=== PATIENT | male | born 1965 | race Asian ===

== ENCOUNTER → 2024-03-01 08:39 | Outpatient (REF) | payer BC, SELFPAY | LOC: RAD 08:39 | PROVIDERS: ATTENDING PHYSICIAN Orthopaedic Surgery; FAMILY PHYSICIAN Internal Medicine | DX: Z96.653 Presence of artificial knee joint, bilateral (principal) | CPT/HCPCS: 78315; A9503 ==

== ENCOUNTER 2024-04-28 07:37 | Inpatient (IN) | payer BC, SELFPAY ==
--- NOTE | 2024-03-30 08:46 | CM ---
Patient is scheduled for a L TK Revision on 04/28/24. Spoke with patient's prior to surgery via telephone. Patient had B TKR at in 2022. Reintroduced role of Orthopedic Navigator. She reports that she, patient and their daughter (who is home
from [facility] for the summer) live in a two story home. There is one step to enter and a flight to his bedroom. He currently functions independently. He has a rolling walker, cane, raised toilet seat and shower seat. He has never had VN services. PCP
is Craig Alvarez.
Discussed orthopedic program and post surgical plans. Reviewed anticipated length of stay and that goal is for patient to return home at discharge. Also reviewed outpatient PT. She is in agreement with tentative plan and will be home with patient to
provide any needed support. Patient will go directly to outpatient PT at [facility].
Patient will complete online education.
Plan: Orthopedic Navigator will remain available to assist with the care of patient and will reassess discharge needs after surgery.
[2024-04-01 13:41] VITALS: BMI 31.4
[2024-04-01 15:17] LABS: Hematocrit 38.3 % (39.0-52.0); Hemoglobin 12.4 g/dL (13.0-18.0); Mean Corp Hgb Conc. 32.4 g/dL (33.0-37.0); Mean Corpuscular Hgb 26.1 pg (27.0-31.0); Mean Corpuscular Volume 80.5 fL (80.0-94.0); Mean Platelet Volume 9.7 fL (7.4-10.4); Platelet Count 250 10^3/uL (130-400); Red Blood Cell Count 4.76 10^6/uL (4.70-6.10); Red Cell Dist. Width 13.5 % (11.5-14.5); White Blood Cell Count 5.4 10^3/uL (4.8-10.8)
[2024-04-01 15:46] LABS: ALT (SGPT) 31 U/L (0-50); AST (SGOT) 27 U/L (17-59); Albumin 4.5 g/dl (3.5-5.0); Alkaline Phosphatase 99 U/L (38-126); Blood Urea Nitrogen 15 mg/dl (9-20); Calcium 9.6 mg/dl (8.4-10.2); Carbon Dioxide 22 mmol/L (22-30); Chloride 105 mmol/L (98-107); Estimated Creatinine Clearance > 125 ml/min; Glucose 155 mg/dl (70-99); Potassium 4.2 mmol/L (3.5-5.1); Sodium 140 mmol/L (135-145); eGFR > 60.00
[2024-04-02 09:18] LABS: Glycohemoglobin (HgbA1c) 6.7 % (4.0-5.6)
[2024-04-28] VITALS (15 sets, daily range): BP systolic 129–178; BP diastolic 75–98; PULSE 67; O2SAT 97; BMI 31.4
[2024-04-28] MEDS: CELEBREX 200 MG PO (08:42)
[2024-04-28] MEDS: TYLENOL 650 MG PO ×4 (08:43→23:52)
[2024-04-28] MEDS: NORMOSOL-R 1000 IV ×2 (08:43→13:36)
[2024-04-28] MEDS: ZOFRAN 4 MG IV (12:51)
[2024-04-28 12:54] LABS: Glucose - Point of Care 147 mg/dl (70-99)
[2024-04-28] MEDS: ROXICODONE 5 MG PO (13:39)
[2024-04-28] MEDS: NOVOLOG FLEXPEN SC ×2 (15:23)
[2024-04-28] MEDS: NOVOLOG FLEXPEN-MODERATE RESISTANCE SC ×2 (15:23→15:24)
[2024-04-28] MEDS: PROTONIX PO (15:23)
--- NOTE | 2024-04-28 15:25 | W.PN.UPDATE ---
Update Note
Progress Note Update
Patient doing well s/p left TK Revision for femoral loosening. VSS. Pulm: nonlabored. CV: regular. LLE: Dressing CDI. NVI distally. Calf soft. Able to fully extend. Postop xrays as expected. Plan for ASA for DVT prophylaxis. Mobilize.
Discharge home tomorrow with outpatient PT on Thursday.
--- NOTE | 2024-04-28 15:25 | PTCARENOTE ---
1430: Patient arrived to 2S. Full head to toe assessment completed. B/L LE neurovascular assessment completed. [place] on L knee with a scant amount of drainage that is intact. IVF running per order. Call beckman within reach and bed in lowest
position. Family at bedside.
[2024-04-28] MEDS: DILAUDID 0.5 MG IV (16:29)
[2024-04-28] MEDS: ROXICODONE 10 MG PO (17:55)
[2024-04-28] MEDS: ASPIRIN 325 MG PO (17:55)
[2024-04-28] MEDS: ANCEF 5 IV (17:55)
[2024-04-28] MEDS: LIPITOR 80 MG PO (17:55)
[2024-04-28 17:59] LABS: Glucose - Point of Care 187 mg/dl (70-99)
[2024-04-28] MEDS: NOVOLOG FLEXPEN-MODERATE RESISTANCE 1 UNITS SC (18:00)
[2024-04-28] MEDS: NOVOLOG FLEXPEN 4 UNITS SC (18:00)
[2024-04-28] MEDS: SENOKOT 17.2 MG PO (19:59)
[2024-04-28] MEDS: BACTROBAN 2% OINTMENT 1 APPLIC NASAL (19:59)
[2024-04-28] MEDS: COLACE 100 MG PO (19:59)
[2024-04-28] MEDS: TORADOL 15 MG IV (20:00)
[2024-04-28 21:04] LABS: Glucose - Point of Care 187 mg/dl (70-99)
[2024-04-28] MEDS: NEURONTIN 300 MG PO (22:10)
[2024-04-29] MEDS: ANCEF 5 IV (01:45)
[2024-04-29 03:00] VITALS: BP 148/73
[2024-04-29] MEDS: TYLENOL PO (05:27)
[2024-04-29 07:05] VITALS: BP 135/70
--- NOTE | 2024-04-29 07:25 | W.PN.ORTHO ---
Today's Communication / Plan
-
Plan for discharge home later this afternoon with outpatient PT on Thursday.
Assessment
.
Distal Motor Intact: Yes
Dressing:
Clean, dry and intact.
Assessment:
Dpoing well s/p Left total knee revision
Plan
.
Surgery / Date: 04/28/24
DVT Prophylaxis: Aspirin
Activity:
Out of bed.
PT/OT
Discharge Plan: Home w/ Outpatient PT
Subjective
.
.:
Patient resting comfortably. OOB yesterday. Doing well.
Vital Signs and Labs
.
Vital Signs and Labs:
Lab Results
04/01/24 13:48
04/01/24 13:48
Temp Pulse Resp BP Pulse Ox
97.8 F 59 12 148/73 98
04/29/24 03:00 04/29/24 03:00 04/29/24 03:00 04/29/24 03:00 04/29/24 03:00
Physical Exam
-
Pulm: nonlabored
CV: regular
LLE: dressing CDI. NVI distally. Able to fully extend.
[2024-04-29] MEDS: NOVOLOG FLEXPEN 4 UNITS SC ×2 (07:45→12:55)
[2024-04-29 07:46] LABS: Glucose - Point of Care 165 mg/dl (70-99)
[2024-04-29] MEDS: CELEBREX 200 MG PO (07:46)
[2024-04-29] MEDS: NOVOLOG FLEXPEN-MODERATE RESISTANCE 1 UNITS SC (07:46)
--- NOTE | 2024-04-29 07:46 | W.PN.ORTHO ---
Today's Communication / Plan
-
d/c
Assessment
.
Distal Motor Intact: Yes
Dressing:
Clean, dry and intact.
Plan
.
Surgery / Date: 04/28/[address] Bearden
DVT Prophylaxis: Aspirin
Activity:
Out of bed.
PT/OT
Discharge Plan: Home w/ Outpatient PT
Subjective
.
.:
Patient resting comfortably.
Vital Signs and Labs
.
Vital Signs and Labs:
Lab Results
04/01/24 13:48
04/01/24 13:48
Temp Pulse Resp BP Pulse Ox
98.4 F 65 17 135/70 97
04/29/24 07:05 04/29/24 07:05 04/29/24 07:05 04/29/24 07:05 04/29/24 07:05
Physical Exam
-
HEENT: No pallor, cyanosis, or jaundice. Throat clear.
NECK: Supple. No JVD.
RESPIRATORY: Lungs clear to auscultation.
CVS: S1, S2 normal. RRR.� No murmur, rub or gallop.
ABDOMEN: Soft, non-tender. No distension. BS+/normal.
EXTREMITIES: strength equal, no calf pain with palpation
NON DESTRUCTIVE TESTING INSPECTOR: AOx3. No focal deficits. rod mill tender grossly intact
[2024-04-29] MEDS: TORADOL 15 MG IV (07:47)
[2024-04-29] MEDS: ASPIRIN 325 MG PO (07:47)
[2024-04-29] MEDS: TYLENOL 650 MG PO ×2 (07:47→11:14)
[2024-04-29] MEDS: SENOKOT 17.2 MG PO (07:47)
[2024-04-29] MEDS: PROTONIX 40 MG PO (07:47)
[2024-04-29] MEDS: COLACE 100 MG PO (07:47)
[2024-04-29] MEDS: BACTROBAN 2% OINTMENT 1 APPLIC NASAL (07:52)
--- NOTE | 2024-04-29 09:03 | CM ---
Addendum entered by Marisela Quiles 04/29/24 10:21:
Patient did well in therapy and has no concerns about going home.
Original Note:
Reviewed chart and held rounds with PT, OT and nursing. Patient admitted as planned for L TK Revision. Met with patient at bedside. Confirmed information previously obtained for assessment. Also discussed discharge plans. The plan is for patient to
return home at discharge. He will have support from his and daughter when he goes home. Patient will go directly to outpatient PT and will go to [facility]. He has an appointment scheduled for Thursday, 05/02.
Patient has a rolling walker, cane, raised toilet seat and shower seat.
He will use [facility] pharmacy if additional discharge prescriptions are needed.
[2024-04-29] MEDS: ROXICODONE 10 MG PO (09:12)
[2024-04-29 09:15] VITALS: BP 146/83; PULSE 69; O2SAT 98
--- NOTE | 2024-04-29 09:46 | W.DS.TRANS ---
DC Summary - [employer]
-
Discharge Instructions:
Sleep Apnea Risk Intermediate
Discharge Diagnosis/Procedures 04/28/[address] Bearden
Diet As tolerated
Activity With Walker
Driving Restrictions No driving
Bathing Restrictions OK to Shower
Other Services PT
Instructions:
Stand-Alone Forms: Total Hip/Knee Replacement D/C
Changes to Home Medications: Yes
Discharge Medications:
DC Medications w/original date entered in [employer]
atorvastatin 80 mg tablet 80 mg PO QPM High Cholesterol 04/25/24
lisinopril 5 mg tablet 5 mg PO Q48H Blood Pressure 04/25/24
omeprazole 20 mg tablet,delayed release 20 mg PO DAILY Gastrointestinal Issue 04/25/24
mupirocin 2 % topical ointment 1 applic topical BID 04/28/24
Saccharomyces boulardii 250 mg capsule (Florastor) 250 mg PO BID #1 cap 04/29/24
acetaminophen 325 mg tablet (Tylenol) 650 mg (2 x 325 mg) PO QID #0 tabs 04/29/24
aspirin 325 mg tablet 325 mg PO DAILY blood clot prevention #1 tab 04/29/24
celecoxib 200 mg capsule 200 mg PO DAILY anti-inflammatory #14 caps 04/29/24
dexamethasone 4 mg tablet 4 mg PO BID inflammation #6 tabs 04/29/24
docusate sodium 100 mg capsule (Colace) 100 mg PO BID stool softner #1 cap 04/29/24
magnesium hydroxide 400 mg/5 mL oral suspension (Milk of Magnesia) 30 ml PO HS PRN Constipation #1 mL 04/29/24
ondansetron 4 mg disintegrating tablet 4 mg PO Q6H PRN n/v #20 tabs 04/29/24
oxycodone 5 mg tablet 5 mg PO Q6H PRN 1 tab moderate pain, 2 tabs severe pain #30 tabs 04/29/24
sennosides 8.6 mg tablet (Senokot) 17.2 mg (2 x 8.6 mg) PO BID laxative #2 tabs 04/29/24
Home Medication Changes
Pending Results: No
[2024-04-29 11:30] VITALS: BP 141/71
[2024-04-29 12:30] LABS: Glucose - Point of Care 127 mg/dl (70-99)
[2024-04-29] MEDS: NOVOLOG FLEXPEN-MODERATE RESISTANCE SC (12:30)
[2024-04-29] MEDS: ROXICODONE 5 MG PO (13:12)
[2024-04-29 14:34] VITALS: BP 140/92
== END 2024-04-29 15:57 | disposition home or self-care (01) | DRG 468 ==
LOC: 2 SOUTH 07:37
PROVIDERS: ADMITTING PHYSICIAN Orthopaedic Surgery; FAMILY PHYSICIAN Internal Medicine
PROC: 0SRD0J9 Replacement of Left Knee Joint with Synthetic Substitute, Cemented, Open Approach (ICD-10-PCS; 2024-04-28)
PROC: 0SPD0JZ Removal of Synthetic Substitute from Left Knee Joint, Open Approach (ICD-10-PCS; 2024-04-28)
PROC: 0HBLXZZ Excision of Left Lower Leg Skin, External Approach (ICD-10-PCS; 2024-04-28)
DX: T84.033A Mechanical loosening of internal left knee prosthetic joint, initial encounter (principal); Y79.2 Prosthetic and other implants, materials and accessory orthopedic devices associated with adverse incidents; Y92.9 Unspecified place or not applicable; Y83.9 Surgical procedure, unspecified as the cause of abnormal reaction of the patient, or of later complication, without mention of misadventure at the time of the procedure; Z96.652 Presence of left artificial knee joint
CPT/HCPCS: 36415; 73560; 80053; 82962; 83036; 85027; 86850; 86900; 86901; 87070; 93005; 97110; 97116; 97162; 97166

== ENCOUNTER 2025-04-06 09:04 | Inpatient (IN) | payer BC, SELFPAY ==
[2025-03-31 12:34] VITALS: BMI 32.2
[2025-03-31 12:42] LABS: Hematocrit 39.3 % (39.0-52.0); Hemoglobin 12.4 g/dL (13.0-18.0); Mean Corp Hgb Conc. 31.6 g/dL (33.0-37.0); Mean Corpuscular Hgb 24.8 pg (27.0-31.0); Mean Corpuscular Volume 78.4 fL (80.0-94.0); Mean Platelet Volume 9.4 fL (7.4-10.4); Platelet Count 268 10^3/uL (130-400); Red Blood Cell Count 5.01 10^6/uL (4.70-6.10); Red Cell Dist. Width 14.5 % (11.5-14.5); White Blood Cell Count 6.9 10^3/uL (4.8-10.8)
[2025-03-31 13:11] LABS: Glycohemoglobin (HgbA1c) 6.9 % (4.0-5.6)
[2025-03-31 14:08] LABS: ALT (SGPT) 26 U/L (0-50); AST (SGOT) 24 U/L (17-59); Albumin 4.7 g/dl (3.5-5.0); Alkaline Phosphatase 98 U/L (38-126); Blood Urea Nitrogen 23 mg/dl (9-20); Calcium 9.6 mg/dl (8.4-10.2); Carbon Dioxide 25 mmol/L (22-30); Chloride 112 mmol/L (98-107); Estimated Creatinine Clearance 115 ml/min; Glucose 116 mg/dl (70-99); Potassium 4.5 mmol/L (3.5-5.1); Sodium 145 mmol/L (135-145); Total Bilirubin 1.3 mg/dl (0.2-1.3); Total Protein 7.3 g/dl (6.3-8.2); eGFR > 60.00
[2025-03-31 14:26] LABS: Iron 62 ug/dl (49-181)
[2025-03-31 14:36] LABS: Percent Saturation 12 % (20-50); Total Iron Binding Capacity 485 ug/dl (261-462)
[2025-03-31 18:26] LABS: Folate > 20.0 ng/ml (2.76-20)
[2025-03-31 20:04] LABS: Ferritin 9.9 ng/ml (17.9-464.0)
[2025-03-31 20:18] LABS: Vitamin B12 511 pg/ml (239-931)
[2025-04-04 10:48] VITALS: BMI 32.2
--- NOTE | 2025-04-04 14:23 | CM ---
CM confirmed demographics. Patient lives independently with . Patient has had a history of VN, but is currently not on service. Patient does not have a history of SNF> Patient's made an appointment for patient with [facility] in [facility] on
04/10. Patient is active with his PCP. Patient has medication coverage.
PLAN: Home with Outpatient PT.
[2025-04-06] VITALS (16 sets, daily range): BP systolic 127–164; BP diastolic 75–110; PULSE 58; O2SAT 96
[2025-04-06] MEDS: TYLENOL 650 MG PO ×3 (08:25→23:49)
[2025-04-06] MEDS: CELEBREX 200 MG PO (08:25)
[2025-04-06] MEDS: NORMOSOL-R/PLASMALYTE-A 1000 IV ×2 (08:33→14:55)
[2025-04-06] MEDS: BACTROBAN NASAL 1 GRAM NASAL (08:37)
[2025-04-06] MEDS: OFIRMEV 100 IV (12:50)
--- NOTE | 2025-04-06 12:52 | W.PN.UPDATE ---
Update Note
Progress Note Update
Mechanical failure of R TKA s/p Revision of R TKA w/ Dr Bearden 04/06/25
DVT prophylaxis - ASA, b/l venous foot pumps
HTN - + parameters - monitor BP
NIDDM, diet controlled, A1c 6.9 - monitor BS
- Add SSI AC, low dose Lantus HS to accommodate for potential elevated BS readings 2* surgical stress, IV steroids in OR
GERD - continue PPI therapy
Iron deficiency anemia, oral supplementation advised - IV iron inpatient
- Continue oral iron upon d/c
Mechanical failure of L TKA, s/p revision of L TKA, 04/2024, with Dr. Bearden
OA, s/p b/l TKA, 11/2022, by Dr Bearden
HLD
CAD, status post PCI with RCA stent 2017
Obesity, BMI 32.1
Remote history of tobacco abuse
--- NOTE | 2025-04-06 13:00 | W.DS.TRANS ---
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
-
Discharge Instructions:
Sleep Apnea Risk Intermediate
Discharge Diagnosis/Procedures Mechanical failure of R TKA s/p Revision of R
TKA w/ Dr Bearden 04/06/25
Diet Diabetic, Carb Controlled
Additional Diets Adequate hydration, minimize opioids, and wear
TEDs stockings to prevent low blood pressure/
dizziness.
Activity As tolerated,With Walker
Driving Restrictions Not until seen by your Dr
Bathing Restrictions OK to Shower
Other Services PT
Wound Care Dressing to be removed 1 week post-surgery.
[place] to be removed at 2 week follow-up with
surgeon's office.
Instructions:
Stand-Alone Forms: Total Hip/Knee Replacement D/C
Changes to Home Medications: Yes
Discharge Medications:
DC Medications w/original date entered in [facility]
atorvastatin 80 mg tablet 80 mg PO QPM High Cholesterol 04/25/24
omeprazole 20 mg tablet,delayed release 20 mg PO DAILY Gastrointestinal Issue 04/25/24
ezetimibe 10 mg tablet 10 mg PO DAILY 03/30/25
cefadroxil 500 mg capsule 500 mg PO BID #14 caps 03/31/25
celecoxib 200 mg capsule (Celebrex) 200 mg PO DAILY #14 caps 03/31/25
mupirocin 2 % topical ointment 1 applic intranasal BID #1 tube 03/31/25
ondansetron HCl 4 mg tablet 4 mg PO Q6H PRN nausea and vomiting #30 tabs 03/31/25
oxycodone 5 mg tablet 5 - 10 mg (1 - 2 x 5 mg) PO Q6H PRN moderate-severe pain #30 tabs 03/31/25
Saccharomyces boulardii 250 mg capsule (Florastor) 250 mg PO BID #14 caps 04/06/25
acetaminophen 325 mg tablet 650 mg (2 x 325 mg) PO Q4HWA #60 tabs 04/06/25
aspirin 325 mg tablet 325 mg PO DAILY #30 tabs 04/06/25
docusate sodium 100 mg capsule 100 mg PO BID #30 caps 04/06/25
ferrous sulfate 325 mg (65 mg iron) tablet 325 mg PO DAILY #30 tabs 04/06/25
sennosides 8.6 mg tablet (Di-evelyn) 17.2 mg (2 x 8.6 mg) PO BID #30 tabs 04/06/25
verapamil 40 mg tablet 40 mg PO DAILY #1 tab 04/06/25
Home Medication Changes
cefadroxil 500 mg capsule 500 mg PO BID #14 caps 03/31/25
celecoxib 200 mg capsule (Celebrex) 200 mg PO DAILY #14 caps 03/31/25
mupirocin 2 % topical ointment 1 applic intranasal BID #1 tube 03/31/25
ondansetron HCl 4 mg tablet 4 mg PO Q6H PRN nausea and vomiting #30 tabs 03/31/25
oxycodone 5 mg tablet 5 - 10 mg (1 - 2 x 5 mg) PO Q6H PRN moderate-severe pain #30 tabs 03/31/25
Saccharomyces boulardii 250 mg capsule (Florastor) 250 mg PO BID #14 caps 04/06/25
acetaminophen 325 mg tablet 650 mg (2 x 325 mg) PO Q4HWA #60 tabs 04/06/25
aspirin 325 mg tablet 325 mg PO DAILY #30 tabs 04/06/25
docusate sodium 100 mg capsule 100 mg PO BID #30 caps 04/06/25
ferrous sulfate 325 mg (65 mg iron) tablet 325 mg PO DAILY #30 tabs 04/06/25
sennosides 8.6 mg tablet (Di-evelyn) 17.2 mg (2 x 8.6 mg) PO BID #30 tabs 04/06/25
Pending Results: No
[2025-04-06] MEDS: ROXICODONE 5 MG PO ×2 (13:35→16:32)
[2025-04-06] MEDS: NOVOLOG FLEXPEN-MODERATE RESISTANCE SC (14:48)
[2025-04-06 14:49] LABS: Glucose - Point of Care 137 mg/dl (70-99)
[2025-04-06] MEDS: ISOPTIN 40 MG PO (14:53)
[2025-04-06] MEDS: ZETIA 10 MG PO (14:54)
[2025-04-06] MEDS: PROTONIX 40 MG PO (14:54)
[2025-04-06] MEDS: FERRLECIT 110 MG IV (15:01)
--- NOTE | 2025-04-06 15:01 | W.PN.UPDATE ---
Update Note
Progress Note Update
Patient doing well s/p R TKRevision. VSS. Pulm: nonlabored. CV: regular. Abd: benign. RLE: Dressing CDI. NVI distally. Calf soft. Able to fully extend. Xrays as expected. ASA for DVT prophylaxis. Plan for discharge home tomorrow with
outpatient PT on Thursday. Patient with complaints of right shoulder pain postop. Will observe. May be related to positioning. Patient on NSAIDS postop.
--- NOTE | 2025-04-06 15:30 | PTCARENOTE ---
Pt arrived to [facility] at 1420 from PACU in a bed. Pt has right knee mepilex dressing c/d/i. Pt c/o right shoulder pain. Dr. Bearden notified. Admission questions answered. Bed locked and in lowest position. Care ongoing.
[2025-04-06 17:19] LABS: Glucose - Point of Care 258 mg/dl (70-99)
[2025-04-06] MEDS: LIPITOR 80 MG PO (17:27)
[2025-04-06] MEDS: NOVOLOG FLEXPEN-MODERATE RESISTANCE 5 UNITS SC (17:27)
[2025-04-06] MEDS: ANCEF 5 IV (17:27)
[2025-04-06] MEDS: ASPIRIN 325 MG PO (17:27)
[2025-04-06] MEDS: SENOKOT 17.2 MG PO (19:29)
[2025-04-06] MEDS: TORADOL 10 MG IV (19:29)
[2025-04-06] MEDS: BACTROBAN 2% OINTMENT 1 APPLIC NASAL (19:29)
[2025-04-06] MEDS: COLACE 100 MG PO (19:29)
[2025-04-06 21:35] LABS: Glucose - Point of Care 195 mg/dl (70-99)
[2025-04-06] MEDS: LANTUS 0.05 UNITS SC (21:46)
[2025-04-07] MEDS: ANCEF 5 IV (02:42)
[2025-04-07] MEDS: ROXICODONE 10 MG PO ×2 (02:50→08:24)
[2025-04-07 03:10] VITALS: BP 139/86
[2025-04-07] MEDS: TYLENOL 650 MG PO ×3 (03:13→12:27)
[2025-04-07 07:07] VITALS: BP 155/97
--- NOTE | 2025-04-07 07:45 | W.PN.ORTHO ---
Addendum entered and electronically signed by Joaquín Bearden MD 04/07/25 07:51:
Please note that plan should read 'home today with outpatient PT on Thursday.' Thank you
Original Note:
Today's Communication / Plan
-
Plan for discharge home today with home PT and VN
Assessment
.
Distal Motor Intact: Yes
Dressing:
Clean, dry and intact.
Assessment:
Doing well s/p RTK revision
Plan
.
Surgery / Date: 04/06/2025
DVT Prophylaxis: Aspirin
Activity:
Out of bed.
PT/OT
Discharge Plan: Home w/ VN
Subjective
.
.:
Patient resting comfortably.
Eating breakfast
Vital Signs and Labs
.
Vital Signs and Labs:
Lab Results
03/31/25 12:22
03/31/25 12:22
Temp Pulse Resp BP Pulse Ox
98.3 F 70 17 139/86 96
04/07/25 03:10 04/07/25 03:10 04/07/25 03:10 04/07/25 03:10 04/07/25 03:10
Non-invasive Hgb result: 13.1
Physical Exam
-
Pulm: nonlabored
CV: regular
Abd: benign
Ext: RLE: Calf soft. Able to fully extend. NVi distally
[2025-04-07 07:55] LABS: Glucose - Point of Care 145 mg/dl (70-99)
[2025-04-07] MEDS: NOVOLOG FLEXPEN-MODERATE RESISTANCE SC ×2 (08:20→11:49)
[2025-04-07] MEDS: ISOPTIN 40 MG PO (08:21)
[2025-04-07] MEDS: CELEBREX 200 MG PO (08:21)
[2025-04-07] MEDS: ZETIA 10 MG PO (08:21)
[2025-04-07] MEDS: SENOKOT 17.2 MG PO (08:21)
[2025-04-07] MEDS: PROTONIX 40 MG PO (08:21)
[2025-04-07] MEDS: ASPIRIN 325 MG PO (08:21)
[2025-04-07] MEDS: COLACE 100 MG PO (08:22)
[2025-04-07] MEDS: BACTROBAN 2% OINTMENT 1 APPLIC NASAL (08:22)
--- NOTE | 2025-04-07 08:41 | CM ---
Cm reviewed medical records. CM met with patient in room. Patient confirmed PT appointment for 04/10. Patient is requesting a letter for his employer stating that he is on 'light duty'. Cm will coordinate with ortho PA.
PLAN: home with outpatient PT.
[2025-04-07 09:27] VITALS: BP 171/91; PULSE 70
--- NOTE | 2025-04-07 10:04 | W.PN.ORTHO ---
Today's Communication / Plan
-
d/c
Assessment
.
Distal Motor Intact: Yes
Dressing:
Clean, dry and intact.
Assessment:
NIDDM, diet controlled, A1c 6.9 - monitor BS
- Add SSI AC, low dose Lantus HS to accommodate for potential elevated BS readings 2* surgical stress, IV steroids in OR
- Cefadroxil ppx
Iron deficiency anemia, oral supplementation advised - IV iron inpatient
- Continue oral iron upon d/c
- hgb stable
Plan
.
Surgery / Date: Revision of R TKA w/ Dr Bearden 04/06/25
DVT Prophylaxis: Aspirin
Activity:
Out of bed.
PT/OT
Discharge Plan: Home w/ Outpatient PT
Subjective
.
.:
Patient resting comfortably.
Vital Signs and Labs
.
Vital Signs and Labs:
Lab Results
03/31/25 12:22
03/31/25 12:22
Temp Pulse Resp BP Pulse Ox
97.7 F 75 17 155/97 97
04/07/25 07:07 04/07/25 07:07 04/07/25 07:07 04/07/25 08:21 04/07/25 07:07
Non-invasive Hgb result: 13.1
Physical Exam
-
HEENT: No pallor, cyanosis, or jaundice. Throat clear.
NECK: Supple. No JVD.
RESPIRATORY: Lungs clear to auscultation.
CVS: S1, S2 normal. RRR.� No murmur, rub or gallop.
ABDOMEN: Soft, non-tender. No distension. BS+/normal.
EXTREMITIES: strength equal, no calf pain with palpation
INVESTMENT BANKING ASSOCIATE: AOx3. No focal deficits. technical information specialist grossly intact
--- NOTE | 2025-04-07 10:37 | CM ---
Cm advised patient to call surgical clinical reviewer at [facility] for any letters needs for work. Patient will follow up.
[2025-04-07 11:05] VITALS: BP 145/95
[2025-04-07 11:46] LABS: Glucose - Point of Care 120 mg/dl (70-99)
== END 2025-04-07 14:40 | disposition home or self-care (01) | DRG 468 ==
LOC: 2 SOUTH 09:04
PROVIDERS: ADMITTING PHYSICIAN Orthopaedic Surgery; FAMILY PHYSICIAN Internal Medicine
PROC: 0SPC0JZ Removal of Synthetic Substitute from Right Knee Joint, Open Approach (ICD-10-PCS; 2025-04-06)
PROC: 0SRC0J9 Replacement of Right Knee Joint with Synthetic Substitute, Cemented, Open Approach (ICD-10-PCS; 2025-04-06)
DX: T84.032A Mechanical loosening of internal right knee prosthetic joint, initial encounter (principal); M17.11 Unilateral primary osteoarthritis, right knee; I10 Essential (primary) hypertension; E78.5 Hyperlipidemia, unspecified; I25.10 Atherosclerotic heart disease of native coronary artery without angina pectoris; E11.9 Type 2 diabetes mellitus without complications; K21.9 Gastro-esophageal reflux disease without esophagitis; D50.9 Iron deficiency anemia, unspecified; E66.9 Obesity, unspecified; Y79.2 Prosthetic and other implants, materials and accessory orthopedic devices associated with adverse incidents; Z96.653 Presence of artificial knee joint, bilateral; Z68.32 Body mass index [BMI] 32.0-32.9, adult; Z87.891 Personal history of nicotine dependence; Z95.5 Presence of coronary angioplasty implant and graft
CPT/HCPCS: 36415; 73560; 80053; 82607; 82728; 82746; 82962; 83036; 83540; 83550; 85027; 86850; 86900; 86901; 87070; 97110; 97116; 97162; 97166; 97530; 97535; J2916